=== PATIENT | male | born 1990 ===

== ENCOUNTER 2019-06-09 00:24 | Emergency (ER) | payer SELFPAY ==
[~2019-06-09] VITALS: Ht 175.3 cm; Wt 81.7 kg
== END 2019-06-09 01:07 | disposition left against medical advice (07) ==
LOC: ER 00:24
DX: S02.5XXA Fracture of tooth (traumatic), initial encounter for closed fracture (principal); W22.8XXA Striking against or struck by other objects, initial encounter
CPT/HCPCS: 99283

== ENCOUNTER → 2019-06-18 | Outpatient (CLI) | payer SELFPAY | END | disposition home or self-care (01) | LOC: LAB 19:41 → LAB SHORT 19:41 | DX: J34.0 Abscess, furuncle and carbuncle of nose (principal) | CPT/HCPCS: 87070; 87075; 87077; 87147; 87186; 87205 ==

== ENCOUNTER → 2020-05-11 | Outpatient (CLI) | payer OTHER ==
[2020-05-13 14:51] LABS: CORONAVIRUS (COVID19) CSH-NRL Positive (Negative)
== END | disposition home or self-care (01) ==
LOC: LAB SHORT 13:20 → LAB 13:20
PROVIDERS: Family Medicine
DX: Z20.828 Contact with and (suspected) exposure to other viral communicable diseases (principal)
CPT/HCPCS: U0003

== ENCOUNTER → 2022-01-09 | Outpatient (CLI) | payer OTHER | END | disposition home or self-care (01) | LOC: LAB 14:01 → LAB SHORT 14:01 | PROVIDERS: Physician Assistant | DX: L08.9 Local infection of the skin and subcutaneous tissue, unspecified (principal) | CPT/HCPCS: 86694; 86695; 86696 ==